=== PATIENT | female | born 1930 | race Caucasian/White ===

== ENCOUNTER → 2018-03-07 | Outpatient (CLI) | payer MEDICARE ==
[~2018-03-07] MED LIST: ACEB200; BP MED; CARBAMAZEPINE100 MG PO; DIGO.25 PO; DILT120ERA PO; LEVSOD25; LEVSOD50 PO; LISI20 PO; Norco 5-325 Ta1 EACH PO; THYROID MED; TRIHYD253B; XARELTO15 MG PO; [UNRECOGNIZED DRUG - REMARK]
[2018-03-07 14:52] LABS: BASOPHILS ABSOLUTE AUTO 0.09 K/mm3 (0.00-0.23); BASOPHILS PERCENT AUTO 1 % (0-2); EOSINOPHILS ABSOLUTE AUTO 0.52 K/mm3 (0.00-0.68); EOSINOPHILS PERCENT AUTO 4 % (0-6); Hematocrit 39.4 % (33.0-51.0); Hemoglobin 13.1 g/dL (11.5-16.0); IMMATURE GRAN ABSOLUTE AUTO 0.04 K/mm3 (0.00-0.10); IMMATURE GRAN PERCENT AUTO 0 % (0-1); LYMPHOCYTES PERCENT AUTO 15 % (21-46); MONOCYTES ABSOLUTE AUTO 0.74 K/mm3 (0.16-1.47); MONOCYTES PERCENT AUTO 6 % (4-13); Mean Corpuscular HGB 31.1 pg (26.0-34.0); Mean Corpuscular HGB Conc 33.2 g/dL (31.5-36.5); Mean Corpuscular Volume 94 fL (80-100); Mean Platelet Volume 10.3 fL (9.1-12.4); NEUTROPHILS PERCENT AUTO 74 % (41-73); Platelet Count 215 K/mm3 (150-400); RDW Standard Deviation 41.7 fL (35.1-46.3); Red Blood Cell Count 4.21 M/mm3 (3.80-5.20); White Blood Cell Count 12.09 K/mm3 (4.00-11.30)
[2018-03-07 15:06] LABS: Albumin, Blood 3.9 g/dL (3.4-5.0); Albumin/Globulin Ratio 0.9 (0.8-1.8); Bilirubin, Total 0.4 mg/dL (0.1-1.0); Bun/Creatinine Ratio 20.1 (12.0-20.0); Calcium, Blood 9.7 mg/dL (8.5-10.1); Globulin, Blood 4.5 g/dL (2.2-4.0); Potassium, Blood 3.9 mmol/L (3.5-5.5); Total Protein, Blood 8.4 g/dL (6.4-8.2); Uric Acid, Blood 7.1 mg/dL (2.6-6.0)
== END ==
LOC: LAB SHORT 13:59 → LAB 13:59
PROVIDERS: Family Medicine
DX: R22.41 Localized swelling, mass and lump, right lower limb (principal)
CPT/HCPCS: 80053; 84550; 85025; 85651

== ENCOUNTER → 2018-04-26 | Outpatient (CLI) | payer MEDICARE ==
[2018-04-26 13:07] LABS: Stool Occult Bld Immuno 1 Negative (NEGATIVE)
== END ==
LOC: LAB SHORT 07:00 → LAB 07:00 → LAB FUT 12-04 09:30
PROVIDERS: Student in an Organized Health Care Education/Training Program
DX: R19.5 Other fecal abnormalities (principal); E03.9 Hypothyroidism, unspecified
CPT/HCPCS: G0328

== ENCOUNTER 2019-12-16 15:38 | Inpatient (IN) | payer MEDICARE ==
[~2019-12-16] VITALS: Ht 160 cm; Wt 64.4 kg
[~2019-12-16 15:38] MED LIST changes: -LEVSOD50 PO; -XARELTO15 MG PO
[2019-12-16] MEDS ORDERED: XARELTO15 MG PO (17:17)
[2019-12-16] MEDS ORDERED: AMLODIPINE BESY10 MG PO (17:17)
[2019-12-16] MEDS ORDERED: EUTHYROX75 MC1 PO (17:18)
[2019-12-16] MEDS ORDERED: CARBAMAZEPINE100 M1 PO (17:19)
[2019-12-16] MEDS ORDERED: DYAZIDE 37.5-21 EACH PO (17:20)
[2019-12-16 17:34] LABS: BASOPHILS ABSOLUTE AUTO 0.08 K/mm3 (0.00-0.23); BASOPHILS PERCENT AUTO 1 % (0-2); EOSINOPHILS ABSOLUTE AUTO 0.12 K/mm3 (0.00-0.68); EOSINOPHILS PERCENT AUTO 1 % (0-6); Hematocrit 41.2 % (33.0-51.0); Hemoglobin 13.4 g/dL (11.5-16.0); IMMATURE GRAN ABSOLUTE AUTO 0.14 K/mm3 (0.00-0.10); IMMATURE GRAN PERCENT AUTO 1 % (0-1); LYMPHOCYTES ABSOLUTE AUTO 1.18 K/mm3 (0.84-5.20); LYMPHOCYTES PERCENT AUTO 8 % (21-46); MONOCYTES ABSOLUTE AUTO 0.59 K/mm3 (0.16-1.47); MONOCYTES PERCENT AUTO 4 % (4-13); Mean Corpuscular HGB 30.6 pg (26.0-34.0); Mean Corpuscular HGB Conc 32.5 g/dL (31.5-36.5); Mean Corpuscular Volume 94 fL (80-100); Mean Platelet Volume 9.3 fL (9.1-12.4); NEUTROPHILS PERCENT AUTO 86 % (41-73); Platelet Count 191 K/mm3 (150-400); RDW Coefficient Variation 11.7 % (11.7-14.2); RDW Standard Deviation 40.7 fL (35.1-46.3); Red Blood Cell Count 4.38 M/mm3 (3.80-5.20); White Blood Cell Count 15.21 K/mm3 (4.00-11.30)
[2019-12-16 17:54] LABS: International Normalized Ratio 0.98; Prothrombin Time Results 10.5 Sec (9.7-11.5)
[2019-12-16 18:14] LABS: Alanine Aminotransfer (ALT/SGP 18 U/L (12-78); Albumin, Blood 4.1 g/dL (3.4-5.0); Albumin/Globulin Ratio 1.2 (0.8-1.8); Alk Phos 64 U/L (50-136); Anion Gap 10 mmol/L (6-16); Aspartate Aminotrans (AST/SGOT 18 U/L (12-37); Bilirubin, Total 0.3 mg/dL (0.1-1.0); Blood Urea Nitrogen 22 mg/dL (8-24); Bun/Creatinine Ratio 27.6 (12.0-20.0); CO2, Blood 28 mmol/L (21-32); Calcium, Blood 9.5 mg/dL (8.5-10.1); Chloride, Blood 93 mmol/L (98-108); Globulin, Blood 3.5 g/dL (2.2-4.0); Glomerular Filtration Rate >60 (60-); Glucose, Blood 142 mg/dL (70-99); Potassium, Blood 3.2 mmol/L (3.5-5.5); Sodium, Blood 131 mmol/L (136-145); Total Protein, Blood 7.6 g/dL (6.4-8.2)
[2019-12-16 18:42] LABS: Source, Urine Voided
[2019-12-16 18:55] LABS: Appearance, Urine Clear (Clear); Bilirubin, Urine Neg (Neg); Blood, Urine 1+ (Neg); Color, Urine Yellow (P-Yellow); Glucose Qualitative, Urine Neg (Neg); Ketones, Urine Neg (Neg); Leukocyte Esterase, Urine Neg (Neg); Nitrite, Urine Pos (Neg); Protein, Urine 2+ (Neg); Urobilinogen, Urine NORM (Normal)
[2019-12-16 19:01] LABS: Red Blood Cells, Urine 0-2 /hpf (0-2); White Blood Cells, Urine 0-2 /hpf (0-5)
[2019-12-16 19:02] LABS: Bacteria Many /hpf; Squamous Epithelial Cells Rare /hpf (Few)
--- NOTE | 2019-12-16 20:30 | NUR ---
CODE STATUS: PT REQUESTS TO BE DNR STATUS. PT STATES HAS AN ADVANCED DIRECTIVE AND POLST FORM AT HOME. MEANING OF DNR STATUS CLARIFIED W/PT. PT VERBALIZED DOES NOT WANT ANY LIFE SAVING INTERVENTIONS INCLUDING CPR. CALL PLACED TO HOSPITALIST CODE STATUS CHANGED TO DNR
--- NOTE | 2019-12-17 03:17 | NUR ---
PT NEW ADMIT FOR RIGHT HIP FX. VSS T/O NIGHT, HR AFIB 90-100 PER TELE MONITOR. PAIN MGD PER EMAR W/REP RELIEF. PT SHIFTING SELF IN BED. PT NPO POST MIDNIGHT FOR PLAN FOR OR TODAY; IVF CONT PER ORDERS. PT USING CALL LIGHT FOR ASSISTANCE, REPORT GIVEN TO JAYY MARIE.
[2019-12-17 04:23] LABS: BASOPHILS ABSOLUTE AUTO 0.05 K/mm3 (0.00-0.23); BASOPHILS PERCENT AUTO 1 % (0-2); EOSINOPHILS ABSOLUTE AUTO 0.03 K/mm3 (0.00-0.68); EOSINOPHILS PERCENT AUTO 0 % (0-6); Hematocrit 36.3 % (33.0-51.0); Hemoglobin 12.1 g/dL (11.5-16.0); IMMATURE GRAN ABSOLUTE AUTO 0.05 K/mm3 (0.00-0.10); IMMATURE GRAN PERCENT AUTO 1 % (0-1); LYMPHOCYTES ABSOLUTE AUTO 1.11 K/mm3 (0.84-5.20); LYMPHOCYTES PERCENT AUTO 10 % (21-46); MONOCYTES ABSOLUTE AUTO 0.67 K/mm3 (0.16-1.47); MONOCYTES PERCENT AUTO 6 % (4-13); Mean Corpuscular HGB 31.8 pg (26.0-34.0); Mean Corpuscular HGB Conc 33.3 g/dL (31.5-36.5); Mean Corpuscular Volume 95 fL (80-100); Mean Platelet Volume 9.2 fL (9.1-12.4); NEUTROPHILS ABSOLUTE AUTO 9.13 K/mm3 (1.96-9.15); NEUTROPHILS PERCENT AUTO 83 % (41-73); Platelet Count 168 K/mm3 (150-400); RDW Coefficient Variation 11.9 % (11.7-14.2); Red Blood Cell Count 3.81 M/mm3 (3.80-5.20); White Blood Cell Count 11.04 K/mm3 (4.00-11.30)
[2019-12-17 04:34] LABS: Prothrombin Time Results 10.7 Sec (9.7-11.5)
[2019-12-17 04:42] LABS: Anion Gap 8 mmol/L (6-16); Blood Urea Nitrogen 17 mg/dL (8-24); Bun/Creatinine Ratio 24.9 (12.0-20.0); CO2, Blood 28 mmol/L (21-32); Calcium, Blood 8.7 mg/dL (8.5-10.1); Chloride, Blood 95 mmol/L (98-108); Creatinine, Blood 0.68 mg/dL (0.40-1.00); Glomerular Filtration Rate >60 (60-); Glucose, Blood 115 mg/dL (70-99); Potassium, Blood 3.4 mmol/L (3.5-5.5); Sodium, Blood 131 mmol/L (136-145)
--- NOTE | 2019-12-17 05:34 | NUR ---
REPORT RECEIVED FROM SHERRI HOPE. PATIENT IS RESTING COMFORTABLY WITH HER NEEDS CURRENTLY MET. NO COMPLAINTS OF PAIN. UNDERSTANDS THAT SHE IS LIKELY GOING TO THE OR TODAY. CALL LIGHT IN REACH.
--- NOTE | 2019-12-17 14:11 | NUR ---
TO DAY SURGERY VIA BED
--- NOTE | 2019-12-17 16:09 | NUR ---
12/17/19 1609 Cricket Fang PATIENT ARRIVED TO OR WITH LARA CATH IN PLACE
--- NOTE | 2019-12-17 17:53 | NUR ---
1740 RETURN TO ROOM FROM PACU, PTS DAUGHTER AT BEDSIDE. PT REPORTS PAIN TO RIGHT HIP 7/0, DENIES NAUSEA. RIGHT HIP WITH AQUACELL X3 CLEAN, DRY AND INTACT. PT DENIES ANY NUMBNESS OR TINGLING. BLE WARM AND PINK WITH PEDAL PULSES PRESENT. FENTANYL GIVEN F0R PAIN.
[2019-12-18 04:20] LABS: BASOPHILS ABSOLUTE AUTO 0.02 K/mm3 (0.00-0.23); BASOPHILS PERCENT AUTO 0 % (0-2); EOSINOPHILS PERCENT AUTO 0 % (0-6); Hematocrit 32.7 % (33.0-51.0); Hemoglobin 10.9 g/dL (11.5-16.0); IMMATURE GRAN ABSOLUTE AUTO 0.04 K/mm3 (0.00-0.10); IMMATURE GRAN PERCENT AUTO 0 % (0-1); LYMPHOCYTES ABSOLUTE AUTO 0.95 K/mm3 (0.84-5.20); LYMPHOCYTES PERCENT AUTO 8 % (21-46); MONOCYTES ABSOLUTE AUTO 0.79 K/mm3 (0.16-1.47); MONOCYTES PERCENT AUTO 7 % (4-13); Mean Corpuscular HGB 31.6 pg (26.0-34.0); Mean Corpuscular HGB Conc 33.3 g/dL (31.5-36.5); Mean Corpuscular Volume 95 fL (80-100); Mean Platelet Volume 9.3 fL (9.1-12.4); NEUTROPHILS ABSOLUTE AUTO 9.45 K/mm3 (1.96-9.15); NEUTROPHILS PERCENT AUTO 84 % (41-73); Platelet Count 163 K/mm3 (150-400); RDW Coefficient Variation 11.9 % (11.7-14.2); RDW Standard Deviation 41.1 fL (35.1-46.3); Red Blood Cell Count 3.45 M/mm3 (3.80-5.20); White Blood Cell Count 11.25 K/mm3 (4.00-11.30)
[2019-12-18 04:36] LABS: Alanine Aminotransfer (ALT/SGP 33 U/L (12-78); Albumin, Blood 2.8 g/dL (3.4-5.0); Albumin/Globulin Ratio 0.9 (0.8-1.8); Alk Phos 39 U/L (50-136); Anion Gap 5 mmol/L (6-16); Aspartate Aminotrans (AST/SGOT 32 U/L (12-37); Bilirubin, Total 0.3 mg/dL (0.1-1.0); Blood Urea Nitrogen 14 mg/dL (8-24); Bun/Creatinine Ratio 18.1 (12.0-20.0); CO2, Blood 29 mmol/L (21-32); Calcium, Blood 8.1 mg/dL (8.5-10.1); Chloride, Blood 97 mmol/L (98-108); Creatinine, Blood 0.77 mg/dL (0.40-1.00); Globulin, Blood 3.2 g/dL (2.2-4.0); Glomerular Filtration Rate >60 (60-); Glucose, Blood 132 mg/dL (70-99); Magnesium, Blood 1.3 mg/dL (1.6-2.4); Sodium, Blood 131 mmol/L (136-145)
--- NOTE | 2019-12-18 04:41 | NUR ---
SHIFT SUMMARY POD 1 R HIP GAMMA NAIL AA0X4, VSS. AQUACEL DRESSING CDI. PT DENIES PAIN DURING SHIFT. REPORTS GETTING A GOOD NIGHT SLEEP. RESTING IN BED T/O SHIFT. ON RAAlex LARA PATENT AND DRAINING. PLAN TO REMOVE END OF SHIFT. PLAN FOR PT TO WORK WITH PT/OT TODAY
--- NOTE | 2019-12-18 07:32 | NUR ---
recvd report from previous shift RN Andrea. pt sleeping in bed, bed in lowest position, bed rails up x 2, call light within reach
--- NOTE | 2019-12-18 17:22 | NUR ---
SHIFT SUMMARY: VSS, NO ACUTE CHANGES. PT TOLERATED PO INTAKE WITH NO N/V, VOIDING WNL, PAIN CONTROLLED PER PT'S RATING MEDICATED PER AUG. PT RECEIVED PHYSICAL THERAPY EVAL/TREATMENT TODAY, HOME WITH HH TOMORROW. OPERATIVE LEG WITH GOOD CAP REFILL/PULSES, PINK/WARM/HEALTHY APPEARANCE. PT'S DAUGHTER VISITED THIS SHIFT, REPORTS FAMILY IS EAGER AND READY TO PROVIDED CARE FOR PT. AQUACEL DRESSING REMAINED C/D/I
[2019-12-19 03:58] LABS: BASOPHILS ABSOLUTE AUTO 0.03 K/mm3 (0.00-0.23); BASOPHILS PERCENT AUTO 0 % (0-2); EOSINOPHILS ABSOLUTE AUTO 0.09 K/mm3 (0.00-0.68); EOSINOPHILS PERCENT AUTO 1 % (0-6); Hematocrit 30.3 % (33.0-51.0); IMMATURE GRAN ABSOLUTE AUTO 0.02 K/mm3 (0.00-0.10); IMMATURE GRAN PERCENT AUTO 0 % (0-1); LYMPHOCYTES ABSOLUTE AUTO 1.53 K/mm3 (0.84-5.20); LYMPHOCYTES PERCENT AUTO 16 % (21-46); MONOCYTES ABSOLUTE AUTO 0.82 K/mm3 (0.16-1.47); MONOCYTES PERCENT AUTO 9 % (4-13); Mean Corpuscular HGB 31.1 pg (26.0-34.0); Mean Corpuscular Volume 94 fL (80-100); Mean Platelet Volume 9.3 fL (9.1-12.4); NEUTROPHILS ABSOLUTE AUTO 6.94 K/mm3 (1.96-9.15); NEUTROPHILS PERCENT AUTO 74 % (41-73); Platelet Count 147 K/mm3 (150-400); RDW Coefficient Variation 11.9 % (11.7-14.2); RDW Standard Deviation 41.1 fL (35.1-46.3); Red Blood Cell Count 3.22 M/mm3 (3.80-5.20); White Blood Cell Count 9.43 K/mm3 (4.00-11.30)
[2019-12-19 04:14] LABS: Anion Gap 3 mmol/L (6-16); Blood Urea Nitrogen 16 mg/dL (8-24); Bun/Creatinine Ratio 18.9 (12.0-20.0); CO2, Blood 31 mmol/L (21-32); Calcium, Blood 8.1 mg/dL (8.5-10.1); Chloride, Blood 93 mmol/L (98-108); Creatinine, Blood 0.85 mg/dL (0.40-1.00); Glomerular Filtration Rate >60 (60-); Glucose, Blood 99 mg/dL (70-99); Magnesium, Blood 1.3 mg/dL (1.6-2.4); Phosphorus, Blood 2.2 mg/dL (2.5-4.9); Potassium, Blood 3.8 mmol/L (3.5-5.5); Sodium, Blood 127 mmol/L (136-145)
--- NOTE | 2019-12-19 05:57 | NUR ---
SHIFT SUMMARY POD 2 GAMMA NAIL AA0X4. PT UP FREQUENTLY TO BATHROOM, PT TOLERATES WELL WITH FWW AND GB. MEDICATED FOR PAIN PER EMAR. TOLERATING PO WELL. AQUACEL CDI. PLAN TO WORK WITH PT AND POSSIBLY DISCHARGE TODAY.
[2019-12-19] MEDS ORDERED: TRAM50 PO (13:19)
[2019-12-19] MEDS ORDERED: LORCET 5-325 M1 EACH PO (13:20)
[2019-12-19] MEDS ORDERED: IBUP200 PO (13:22)
[2019-12-19] MEDS ORDERED: ACET325 PO (13:24)
[2019-12-19] MEDS ORDERED: CEFU500T30 PO (13:25)
--- NOTE | 2019-12-19 16:10 | NUR ---
PATIENT D/C'D HOME WITH DAUGHTER AT THIS TIME; BOTH STATE UNDERSTANDING OF ACTIVITY, MEDS, WOUND CARE, F/U APPT, ETC. PATIENT STATES PAIN CONTROLLED WITH ULTRAM. APPETITE GOOD. VOIDING WELL. NO C/O AT THIS TIME.
== END 2019-12-19 16:10 | disposition home or self-care (01) | DRG 481 ==
LOC: ER 15:38 → SURS 17:10
PROVIDERS: Emergency Medicine; Hospitalist; Orthopaedic Surgery; ADMIT Internal Medicine
PROC: 0QH604Z Insertion of Internal Fixation Device into Right Upper Femur, Open Approach (ICD-10-PCS; principal; 2019-12-17 15:15)
DX: S72.141A Displaced intertrochanteric fracture of right femur, initial encounter for closed fracture (principal); I48.20 Chronic atrial fibrillation, unspecified; N39.0 Urinary tract infection, site not specified; I10 Essential (primary) hypertension; E03.9 Hypothyroidism, unspecified; G50.0 Trigeminal neuralgia; W01.0XXA Fall on same level from slipping, tripping and stumbling without subsequent striking against object, initial encounter; Y92.008 Other place in unspecified non-institutional (private) residence as the place of occurrence of the external cause; E87.6 Hypokalemia
CPT/HCPCS: 36415; 51702; 71045; 73502; 80048; 80053; 81001; 83735; 84100; 84443; 85025; 85610; 93005; 93010; 96374-59; 97110; 97116; 97162; 97530; 99285-25; A9270; C1713; J0690; J0696; J1100; J2405; J2704; J3010; J7030; J7120; U0002

== ENCOUNTER 2020-01-19 08:52 | Emergency (ER) | payer MEDICARE ==
[~2020-01-19] VITALS: Ht 170.2 cm; Wt 79.4 kg
[~2020-01-19 08:52] MED LIST changes: +ACET325 PO; +AMLODIPINE BESY10 MG PO; +CARB100ER PO; +CARBAMAZEPINE100 M1 PO; +CEFU500T30 PO; +DYAZIDE 37.5-21 EACH PO; +EUTHYROX75 MC1 PO; +IBUP200 PO; +LORCET 5-325 M1 EACH PO; +PREG25 PO; +TRAM50 PO; +XARELTO15 MG PO
[2020-01-19 10:20] LABS: Alanine Aminotransfer (ALT/SGP 19 U/L (12-78); Albumin, Blood 3.4 g/dL (3.4-5.0); Alk Phos 62 U/L (50-136); Anion Gap 6 mmol/L (6-16); Aspartate Aminotrans (AST/SGOT 23 U/L (12-37); Bilirubin, Total 0.6 mg/dL (0.1-1.0); Blood Urea Nitrogen 12 mg/dL (8-24); CO2, Blood 27 mmol/L (21-32); Calcium, Blood 8.9 mg/dL (8.5-10.1); Chloride, Blood 104 mmol/L (98-108); Creatinine, Blood 0.67 mg/dL (0.40-1.00); Globulin, Blood 3.5 g/dL (2.2-4.0); Glomerular Filtration Rate >60 (60-); Glucose, Blood 93 mg/dL (70-99); Potassium, Blood 3.8 mmol/L (3.5-5.5); Sodium, Blood 137 mmol/L (136-145); Total Protein, Blood 6.9 g/dL (6.4-8.2)
[2020-01-19 11:26] LABS: BASOPHILS ABSOLUTE AUTO 0.05 K/mm3 (0.00-0.23); BASOPHILS PERCENT AUTO 1 % (0-2); EOSINOPHILS ABSOLUTE AUTO 0.09 K/mm3 (0.00-0.68); EOSINOPHILS PERCENT AUTO 1 % (0-6); IMMATURE GRAN ABSOLUTE AUTO 0.04 K/mm3 (0.00-0.10); IMMATURE GRAN PERCENT AUTO 1 % (0-1); LYMPHOCYTES ABSOLUTE AUTO 1.01 K/mm3 (0.84-5.20); LYMPHOCYTES PERCENT AUTO 16 % (21-46); MONOCYTES ABSOLUTE AUTO 0.44 K/mm3 (0.16-1.47); MONOCYTES PERCENT AUTO 7 % (4-13); Mean Corpuscular HGB 32.1 pg (26.0-34.0); Mean Corpuscular HGB Conc 32.4 g/dL (31.5-36.5); Mean Corpuscular Volume 99 fL (80-100); Mean Platelet Volume 9.3 fL (9.1-12.4); NEUTROPHILS ABSOLUTE AUTO 4.78 K/mm3 (1.96-9.15); NEUTROPHILS PERCENT AUTO 75 % (41-73); Platelet Count 204 K/mm3 (150-400); RDW Coefficient Variation 14.1 % (11.7-14.2); RDW Standard Deviation 51.1 fL (35.1-46.3); Red Blood Cell Count 3.43 M/mm3 (3.80-5.20); White Blood Cell Count 6.41 K/mm3 (4.00-11.30)
== END 2020-01-19 12:04 | disposition home or self-care (01) ==
LOC: ER 08:52
PROVIDERS: Emergency Medicine
DX: I48.91 Unspecified atrial fibrillation (principal); I10 Essential (primary) hypertension; E03.9 Hypothyroidism, unspecified; Z88.8 Allergy status to other drugs, medicaments and biological substances; Z79.899 Other long term (current) drug therapy
CPT/HCPCS: 36415; 71045; 80053; 84484; 85025; 93005; 93010; 99285-25

== ENCOUNTER → 2020-04-30 | Outpatient (CLI) | payer MEDICARE, OTHER ==
[2020-04-30 19:07] LABS: Creatinine, Urine Random 58.5 mg/dL (27.00-270.00)
[2020-04-30 19:08] LABS: Microalb/Creat Ratio UR, Rand 109.06 mg/g (0.000-30.000); Microalbumin, Random Urine 63.8 mg/L (0.000-20.000)
== END | disposition home or self-care (01) ==
LOC: LAB EV 09:00 → LAB SHORT 09:00
PROVIDERS: Physician Assistant
DX: R94.4 Abnormal results of kidney function studies (principal)
CPT/HCPCS: 82043; 82570

== ENCOUNTER → 2021-12-02 | Outpatient (CLI) | payer MEDICARE ==
[2021-12-02 17:16] LABS: Creatinine, Urine Random 87.5 mg/dL (27.00-270.00); Microalb/Creat Ratio UR, Rand 210.286 mg/g (0.000-30.000)
== END | disposition home or self-care (01) ==
LOC: LAB SHORT 15:08
PROVIDERS: Physician Assistant
DX: N18.30 Chronic kidney disease, stage 3 unspecified (principal)
CPT/HCPCS: 82043; 82570

== ENCOUNTER → 2022-02-28 | Outpatient (CLI) | payer MEDICARE | END | disposition home or self-care (01) | LOC: PLD 11:59 → LAB 11:59 → LAB SHORT 11:59 | DX: D03.8 Melanoma in situ of other sites (principal) | CPT/HCPCS: 88305 ==

== ENCOUNTER → 2022-06-14 | Outpatient (CLI) | payer MEDICARE | END | disposition home or self-care (01) | LOC: LAB SHORT 15:13 | DX: N39.0 Urinary tract infection, site not specified (principal) | CPT/HCPCS: 87077; 87086; 87186 ==